=== PATIENT | female | born 1960 | race Caucasian/White ===

== ENCOUNTER 2016-12-30 10:51 | Emergency (ER) | payer BC ==
[~2016-12-30] VITALS: Ht 154.9 cm; Wt 48.3 kg
[~2016-12-30 10:51] MED LIST: LISI-357 PO; XANA0.5T PO
[2016-12-30 10:54] VITALS: BP 212/95; PULSE 69; RESP 16; TEMP 97.8; O2SAT 99
[2016-12-30] MEDS ORDERED: SODIUM CHLOR 0.9% 1000 ML INJ 1,000 ML IV SCH (10:59)
[2016-12-30] MEDS ORDERED: SODIUM CHLORIDE 0.9% FLUSH 10 ML FLUSH IV FLUSH PRN (11:00)
[2016-12-30] MEDS ORDERED: ONDANSETRON HCL 4 MG/2 ML VIAL IVP ONE (11:00)
--- NOTE | 2016-12-30 11:08 | PD ---
HPI Chief Complaint: Abdominal Pain Time Seen by Provider: 10:59 Travel History International Travel<30 days: No Contact w/Intl Traveler<30days: No Traveled to known affect area: No History of Present Illness HPI PATIENT AWOKEN AT 0200, WITH DIFFUSE ABD CRAMPING PAIN, 12/06, ASSOC WITH NAUSEA BUT NO V/D/CP/[facility] A THIS POINT....NO RELIEVING/AGGRAVATING FACTORS PFSH Past Medical History Cardiovascular Problems: Yes (HTN) Hypertension: Yes Menopausal: Yes Social History Alcohol Use: No Tobacco Use: No Substance Use: No Allergies-Medications (Allergen,Severity, Reaction): Coded Allergies: No Known Allergies (Unverified , 12/30/16) Reported Meds & Prescriptions Reported Meds & Active Scripts Active Zofran Odt (Ondansetron Odt) 4 Mg Tab 4 Mg SL Q6HR PRN Ultram (Tramadol HCl) 50 Mg Tab 50 Mg PO Q4H PRN Flagyl (Metronidazole) 500 Mg Tab 500 Mg PO TID Ciprofloxacin (Ciprofloxacin HCl) 500 Mg Tab 500 Mg PO BID Reported Lisinopril 10 Mg Tab 10 Mg PO BID Review of Systems Except as stated in HPI: all other systems reviewed are Neg Gastrointestinal: Positive: Nausea, Abdominal Pain Physical Exam Narrative GENERAL: SKIN: Warm and dry. HEAD: Atraumatic. Normocephalic. EYES: Pupils equal and round. No scleral icterus. No injection or drainage. ENT: No nasal bleeding or discharge. Mucous membranes pink and moist. NECK: Trachea midline. No JVD. CARDIOVASCULAR: Regular rate and rhythm. RESPIRATORY: No accessory muscle use. Clear to auscultation. Breath sounds equal bilaterally. GASTROINTESTINAL: Abdomen soft, non-tender, nondistended. MUSCULOSKELETAL: Extremities without clubbing, cyanosis, or edema. No obvious deformities. NEUROLOGICAL: Awake and alert. No obvious cranial nerve deficits. Motor grossly within normal limits. Five out of 5 muscle strength in the arms and legs. Normal speech. PSYCHIATRIC: Appropriate mood and affect; insight and judgment normal. Data Data Last Documented VS Vital Signs Date Time Temp Pulse Resp B/P Pulse Ox O2 Delivery O2 Flow Rate FiO2 12/30/16 12:14 61 16 159/84 98 Room Air 12/30/16 10:54 97.8 Orders Complete Blood Count With Diff (12/30/16 10:59) Comprehensive Metabolic Panel (12/30/16 10:59) Lipase (12/30/16 10:59) Urinalysis - C+S If Indicated (12/30/16 10:59) Ct Abd/Pel W/O Iv Contrast (12/30/16 10:59) Iv Access Insert/Monitor (12/30/16 10:59) Ecg Monitoring (12/30/16 10:59) Oximetry (12/30/16 10:59) NPO (12/30/16 10:59) Hydromorphone Pf Inj (Dilaudid Pf Inj) (12/30/16 11:00) Ondansetron Inj (Zofran Inj) (12/30/16 11:00) Sodium Chlor 0.9% 1000 Ml Inj (Ns 1000 M (12/30/16 10:59) Sodium Chloride 0.9% Flush (Ns Flush) (12/30/16 11:00) Electrocardiogram (12/30/16 10:59) Labs Laboratory Tests Test 12/30/16 12/30/16 11:00 11:15 Urine Collection Type VOIDED Urine Color STRAW Urine Turbidity CLEAR Urine pH 5.5 Urine Specific [place] 1.030 Urine Protein NEG mg/dL Urine Glucose (UA) 500 mg/dL Urine Ketones 40 mg/dL Urine Occult Blood TRACE Urine Nitrite NEG Urine Bilirubin NEG Urine Leukocyte Esterase NEG Urine WBC 0-2 /hpf Urine Squamous Epithelial 0-5 /hpf Cells Urine Uric Acid Crystals FEW /hpf Microscopic Urinalysis Comment CULT NOT INDICATED White Blood Count 7.4 TH/MM3 Red Blood Count 4.61 MIL/MM3 Hemoglobin 13.6 GM/DL Hematocrit 39.5 % Mean Corpuscular Volume 85.6 FL Mean Corpuscular Hemoglobin 29.5 PG Mean Corpuscular Hemoglobin 34.5 % Concent Red Cell Distribution Width 13.2 % Platelet Count 157 TH/MM3 Mean Platelet Volume 7.4 FL Neutrophils (%) (Auto) 86.6 % Lymphocytes (%) (Auto) 9.9 % Monocytes (%) (Auto) 2.6 % Eosinophils (%) (Auto) 0.3 % Basophils (%) (Auto) 0.6 % Neutrophils # (Auto) 6.5 TH/MM3 Lymphocytes # (Auto) 0.7 TH/MM3 Monocytes # (Auto) 0.2 TH/MM3 Eosinophils # (Auto) 0.0 TH/MM3 Basophils # (Auto) 0.0 TH/MM3 CBC Comment DIFF FINAL Differential Comment Sodium Level 139 MEQ/L Potassium Level 4.1 MEQ/L Chloride Level 106 MEQ/L Carbon Dioxide Level 24.2 MEQ/L Anion Gap 9 MEQ/L Blood Urea Nitrogen 13 MG/DL Creatinine 0.85 MG/DL Estimat Glomerular Filtration 69 ML/MIN Rate Random Glucose 254 MG/DL Calcium Level 8.5 MG/DL Total Bilirubin 0.4 MG/DL Aspartate Amino Transf 14 U/L (AST/SGOT) Alanine Aminotransferase 29 U/L (ALT/SGPT) Alkaline Phosphatase 92 U/L Total Protein 6.5 GM/DL Albumin 3.4 GM/DL Lipase 183 U/L [facility] Medical Decision Making Medical Screen Exam Complete: Yes Emergency Medical Condition: Yes Medical Record Reviewed: Yes Interpretation(s) NSR 60, NL INTERVALS, NO STEMI PATTERN Differential Diagnosis UTI V BACTERIAL ENTERITIS V APPY V GB DZ Narrative Course ua did not show e/o uti, ekg and labs wnl, ct neg for appy/gb dz but positive for divertic Diagnosis Primary Impression: DIVERTICULOSIS Patient Instructions: Diverticulitis Diet (GEN), Diverticulosis (DC), General Instructions Scripts Ondansetron Odt (Zofran Odt)4 Mg Tab4 Mg SL Q6HR PRN (Nausea/Vomiting) #12 TAB Prov:Melvin Garcia MD 12/30/16 Tramadol (Ultram)50 Mg Tab50 Mg PO Q4H PRN (PAIN) #28 TAB Prov:Melvin Garcia MD 12/30/16 Metronidazole (Flagyl)500 Mg [id number] Mg PO TID #21 TAB Prov:Melvin Garcia MD 12/30/16 Ciprofloxacin 500 Mg [id number] Mg PO BID #14 TAB Prov:Melvin Garcia MD 12/30/16 Disposition: DISCHARGE HOME Condition: Stable Melvin Garcia MD Dec 30, 2016 11:08
[2016-12-30] MEDS ORDERED: LISI10TA3 PO (11:10)
[2016-12-30 11:16] VITALS: O2SAT 98
[2016-12-30 11:20] LABS: BLOOD, URINE TRACE (NEG); GLUCOSE,URINE 500 mg/dL (NEG); KETONE, URINE 40 mg/dL (NEG); NITRITE,URINE NEG (NEG); PH, URINE 5.5 (5.0-8.5)
[2016-12-30 11:23] LABS: AUTOMATED NEUTROPHIL # 6.5 TH/MM3 (1.8-7.7); BASOPHIL % 0.6 % (0.0-2.0); EOSINOPHIL % 0.3 % (0.0-4.0); HEMATOCRIT 39.5 % (35.0-46.0); HEMO FLAGS DIFF FINAL; LYMPH % 9.9 % (9.0-44.0); LYMPHOCYTE # 0.7 TH/MM3 (1.0-4.8); MEAN CELL VOLUME 85.6 FL (80.0-100.0); MEAN CORPUSCULAR HEMOGLOBIN 29.5 PG (27.0-34.0); MEAN CORPUSCULAR HGB CONC 34.5 % (32.0-36.0); MONO % 2.6 % (0.0-8.0); NEUT % 86.6 % (16.0-70.0); PLATELET COUNT 157 TH/MM3 (150-450); RED BLOOD COUNT 4.61 MIL/MM3 (4.00-5.30); RED CELL DISTRIBUTION WIDTH 13.2 % (11.6-17.2); WHITE BLOOD COUNT 7.4 TH/MM3 (4.0-11.0)
[2016-12-30 11:30] LABS: CHLORIDE 106 MEQ/L (98-107); POTASSIUM 4.1 MEQ/L (3.5-5.1); SODIUM (NA) 139 MEQ/L (136-145)
[2016-12-30] MEDS: HYDROmorphone HCL PF 2 MG/ML VIAL IVS ONE ×2 (11:32→11:59)
[2016-12-30 11:33] LABS: METHOD OF COLLECTION VOIDED; URINE COLOR STRAW (YELLW/STRAW)
[2016-12-30 11:34] LABS: ANION GAP 9 MEQ/L (5-15); BICARBONATE 24.2 MEQ/L (21.0-32.0); BLOOD UREA NITROGEN 13 MG/DL (7-18)
[2016-12-30 11:34] LABS: SQUAMOUS EPITHELIAL CELL URINE 0-5 /hpf (0-5); WBC, URINE 0-2 /hpf (0-5)
[2016-12-30 11:35] LABS: URIC ACID CRYSTALS, URINE FEW /hpf
[2016-12-30 11:36] LABS: COMMENT (UR) CULT NOT INDICATED; CULTURE IF INDICATED CULT NOT INDICATED
[2016-12-30 11:37] LABS: ALT (GPT) 29 U/L (10-53); AST (GOT) 14 U/L (15-37); GLOMERULAR FILTRATION RATE 69 ML/MIN (>89)
[2016-12-30 11:38] LABS: TOTAL BILIRUBIN ADULT 0.4 MG/DL (0.2-1.0)
[2016-12-30 11:40] LABS: ALKALINE PHOSPHATASE 92 U/L (45-117)
--- NOTE | 2016-12-30 11:44 | RADRPT ---
EXAM DATE/TIME: 12/30/2016 11:08 [place] COMPARISON: No previous studies available for comparison. INDICATIONS : Lower abdominal and low back pain. Nausea. ORAL CONTRAST: No oral contrast ingested. RADIATION DOSE: 11.70 CTDIvol (mGy) MEDICAL HISTORY : Renal calculi. Hypertension. SURGICAL HISTORY : None. ENCOUNTER: Initial ACUITY: 1 day PAIN SCALE: 7/10 LOCATION: Bilateral lower quadrant TECHNIQUE: Volumetric scanning of the abdomen and pelvis was performed. Using automated exposure control and ad justment of the mA and/or kV according to patient size, radiation dose was kept as low as reasonably achievable to obtain optimal diagnostic quality images. DICOM format image data is available electro nically for review and comparison. FINDINGS: There is a moderate-sized hiatal hernia. No pleural effusion. No acute findings in the liver, spleen, adrenals, kidneys or pancreas. No calcified gallstones. There is colonic diverticulosis without diverticulitis. No pelvic masses. No adenopathy. CONCLUSION: 1. No acute findings. No renal calculi or obstructive uropathy. 2. Colonic diverticulosis without diverticulitis. 3. Moderate-sized hiatal hernia. Ernie Blanca MD on December 30, 2016 at 11:38 Board Certified Radiologist. This report was verified electronically.
[2016-12-30] MEDS ORDERED: ZOFR4TAB3 SL (12:09)
[2016-12-30] MEDS ORDERED: CIPR500T2 PO (12:09)
[2016-12-30] MEDS ORDERED: METR-1 PO (12:09)
[2016-12-30] MEDS ORDERED: ULTR50TA5 PO (12:09)
[2016-12-30 12:14] VITALS: BP 159/84; PULSE 61; RESP 16; O2SAT 98
--- NOTE | 2016-12-30 18:23 | EKG ---
Date Performed: 12/30/2016 Time Performed: 11:09:55 PTAGE: 56 years EKG: Sinus rhythm Since previous tracing, no significant change noted NORMAL ECG PREVIOUS TRACING : 09/18/2013 10.35 DOCTOR: Donna De Dios Interpretating Date/Time 12/30/2016 18:22:09
== END 2016-12-30 12:27 | disposition home or self-care (01) ==
LOC: PHED 10:51
DX: K57.30 Diverticulosis of large intestine without perforation or abscess without bleeding (principal); R11.0 Nausea; I10 Essential (primary) hypertension
CPT/HCPCS: 74176; 80053; 81001; 83690; 85025; 93005; 96361; 96374; 96375; 99285; J1170; J2405; J7030